=== PATIENT | female | born 1970 | race Caucasian/White ===

== ENCOUNTER → 2018-04-29 | Outpatient (CLI) | payer MEDICAID ==
--- NOTE | 2018-04-29 13:08 | CT ---
EXAMINATION TYPE: CT abdomen pelvis w con DATE OF EXAM: 04/29/2018 HISTORY: Umbilical area pain and bloating, possible hernia CT DLP: 387.9mGycm Automated Exposure Control for Dose Reduction was Utilized. CONTRAST: CT scan of the abdomen and pelvis is performed with oral and with IV Contrast, patient injected with 100 mL of Isovue 300. COMPARISON: None FINDINGS: LUNG BASES: No significant abnormality is appreciated. LIVER/GB: No significant abnormality is appreciated. PANCREAS: No significant abnormality is seen. SPLEEN: No significant abnormality is seen. ADRENALS: No significant abnormality is seen. KIDNEYS: No significant abnormality is seen. BOWEL: The oral contrast extends to the proximal to mid left colon. There is no suspicious small or l arge bowel dilatation. UTERUS/ADNEXA: No gross abnormality seen. LYMPH NODES: No greater than 1cm abdominal or pelvic lymph nodes are appreciated. OSSEOUS STRUCTURES: No significant abnormality is seen. OTHER: There is small fat-containing paraumbilical hernia axial image 36 just inferior to the umbilic us. IMPRESSION: No ascites. Small fat-containing periumbilical hernia. No bowel obstruction.
== END | disposition home or self-care (01) ==
LOC: RADCTMAIN 10:31 → MERGE 12:00
PROVIDERS: ATTEND Family Medicine
DX: K42.9 Umbilical hernia without obstruction or gangrene (principal)
CPT/HCPCS: 74177; Q9967

== ENCOUNTER → 2018-06-21 | Outpatient (CLI) | payer MEDICAID ==
--- NOTE | 2018-06-21 15:27 | US ---
EXAMINATION TYPE: US transvaginal DATE OF EXAM: 06/21/2018 COMPARISON: CT 04/29/2018 CLINICAL HISTORY: R14.0 Abdominal bloating; R10.2 pelvic pain in fem. Family hx ovarian CA, Pressure / pain RLQ TECHNIQUE: Transvaginal (TV). Date of LMP: 06/15/2018 EXAM MEASUREMENTS: Uterus: 8.2 x 3.8 x 3.3 cm Endometrial Stripe: 0.4 cm Right Ovary: 3.8 x 2.3 x 1.9 cm Left Ovary: 3.0 x 1.9 x 1.5 cm 1. Uterus: Anteverted wnl 2. Endometrium: wnl 3. Right Ovary: 2 cysts 1)= 2.1x 1.3 x 1.1 cm 2)= 2.1 x 1.5 x 1.3 cm 4. Left Ovary: cyst = 1.1 x 1.2 x 0.8 cm 5. Bilateral Adnexa: wnl 6. Posterior cul-de-sac: wnl There is heterogeneous uterus without free fluid in pelvic cul-de-sac. Endometrial stripe is within n ormal limits. Both ovaries are seen with small peripheral follicles or simple appearing thin-walled c ysts. No suspicious adnexal lesions are present. IMPRESSION: No suspicious ovarian or adnexal lesions noted.
== END | disposition home or self-care (01) ==
LOC: RADUSWWP 14:28
PROVIDERS: ATTEND Family Medicine
DX: R14.0 Abdominal distension (gaseous) (principal); R10.2 Pelvic and perineal pain
CPT/HCPCS: 76830

== ENCOUNTER → 2018-12-14 | Outpatient (CLI) | payer MEDICAID ==
--- NOTE | 2018-12-15 10:47 | ECHOF ---
Referral Reason:R07.89 Other chest pain, R03.0, R11.0 MEASUREMENTS -------- HEIGHT: 162.6 cm WEIGHT: 57.6 kg BP: RVIDd: 1.8 cm (< 3.3) IVSd: 1.0 cm (0.6 - 1.1) LVIDd: 3.8 cm (3.9 - 5.3) LVPWd: 1.0 cm (0.6 - 1.1) IVSs: 1.5 cm LVIDs: 2.7 cm LVPWs: 1.5 cm LAESV Index (A-L): 18.40 ml/m Ao Diam: 2.5 cm (2.0 - 3.7) AV Cusp: 1.5 cm (1.5 - 2.6) LA Diam: 2.1 cm (2.7 - 3.8) MV EXCURSION: 14.577 mm (> 18.000) MV EF SLOPE: 96 mm/s (70 - 150) EPSS: 0.4 cm MV E Inderjit: 0.86 m/s MV DecT: 256 ms MV A Inderjit: 0.67 m/s MV E/A Ratio: 1.28 FINDINGS -------- Sinus rhythm. This was a technically good study. The left ventricular size is normal. Left ventricular wall thickness is normal. Overall left vent ricular systolic function is normal with, an EF between 55 - 60 %. The right ventricle is normal in size and function. Left atrium is normal size by volume. The right atrium is normal in size and function. The aortic valve is trileaflet, and appears structurally normal. No aortic stenosis or regurgitation. The mitral valve leaflets are mildly thickened. There is trace to mild mitral regurgitation. Trace tricuspid regurgitation present. Right ventricular systolic pressure is normal at < 35 mmHg. There is no evidence of pulmonary hypertension. Trace/mild (physiologic) pulmonic regurgitation. The aortic root size is normal. The inferior vena cava was not well visualized. There is no pericardial effusion. CONCLUSIONS -------- 1. Sinus rhythm. 2. This was a technically good study. 3. The left ventricular size is normal. 4. Left ventricular wall thickness is normal. 5. Overall left ventricular systolic function is normal with, an EF between 55 - 60 %. 6. Left atrium is normal size by volume. 7. The aortic valve is trileaflet, and appears structurally normal. No aortic stenosis or regurgitati on. 8. The mitral valve leaflets are mildly thickened. 9. There is trace to mild mitral regurgitation. 10. Trace tricuspid regurgitation present. 11. Right ventricular systolic pressure is normal at < 35 mmHg. 12. There is no evidence of pulmonary hypertension. 13. Trace/mild (physiologic) pulmonic regurgitation. 14. The aortic root size is normal. 15. There is no pericardial effusion. WEB APPLICATIONS ADMINISTRATOR: Dean Gandara RDCS
== END ==
LOC: RADECHMAIN 13:55
PROVIDERS: ATTEND Family Medicine
DX: I05.9 Rheumatic mitral valve disease, unspecified (principal); I37.1 Nonrheumatic pulmonary valve insufficiency
CPT/HCPCS: 93306

== ENCOUNTER → 2018-12-22 | Outpatient (CLI) | payer MEDICAID ==
--- NOTE | 2018-12-23 12:05 | P.STRESS ---
- Stress Test Note Stress Test Results/Findings: Exam Performed: stress test Exam Date: 12/22/18 Reason for Exam: CHEST PAIN, DIZZY, ELEVATED BP Height: 5 ft 4 in Weight: 57.606 kg Protocol: JUSTIN Stage: III Duration of Exercise: 9:00 Resting Heart Rate: 98 Resting Blood Pressure: 145/97 Maximum Achieved Heart Rate: 172 Maximum Achieved Blood Pressure: 198/87 85% PMHR: 148 100% PMHR: 174 METS: 10.5 Technologist Comment: Stress Test Results/Findings: This is a 48-year-old female being evaluated for symptoms of chest pain and dizziness. Patient has complaints of chest pain and shortness of breath and family history of ischemic heart disease. Stress data: Baseline EKG showed sinus rhythm with normal IN interval and QRS duration with occasional PVCs. Blood pressure at rest is 145/97 at pulse rate 98. Patient walked on the Justin protocol for 9 minutes achieving a maximal rate of 172 with blood pressure 198/87. EKGs taken during and after the exercise did not reveal any significant changes from the baseline. Occasional PVCs were noted. Patient did not experience any chest pain. Final impression: #1. Negative stress test #2 patient did not express any chest pain. #3. Occasional PVCs were noted. #4. Patient's exercise capacity is good.
--- NOTE | 2018-12-26 17:23 | EST ---
Stress Test Results/Findings: Exam Performed: stress test Exam Date: 12/22/18 Reason for Exam: CHEST PAIN, DIZZY, ELEVATED BP Height: 5 ft 4 in Weight: 57.606 kg Protocol: JUSTIN Stage: III Duration of Exercise: 9:00 Resting Heart Rate: 98 Resting Blood Pressure: 145/97 Maximum Achieved Heart Rate: 172 Maximum Achieved Blood Pressure: 198/87 85% PMHR: 148 100% PMHR: 174 METS: 10.5 Technologist Comment: Stress Test Results/Findings: This is a 48-year-old female being evaluated for symptoms of chest pain and dizziness. Patient has complaints of chest pain and shortness of breath and family history of ischemic heart disease. Stress data: Baseline EKG showed sinus rhythm with normal [place] interval and QRS duration with occasional PVCs. Blood pressure at rest is 145/97 at pulse rate 98. Patient walked on the Justin protocol for 9 minutes achieving a maximal rate of 172 with blood pressure 198/87. EKGs taken during and after the exercise did not reveal any significant changes from the baseline. Occasional PVCs were noted. Patient did not experience any chest pain. Final impression: #1. Negative stress test #2 patient did not express any chest pain. #3. Occasional PVCs were noted. #4. Patient's exercise capacity is good. MTDD
== END ==
LOC: RADNMMAIN 08:46
PROVIDERS: ATTEND Family Medicine
DX: R07.89 Other chest pain (principal); R03.0 Elevated blood-pressure reading, without diagnosis of hypertension; R11.0 Nausea
CPT/HCPCS: 93017

== ENCOUNTER → 2019-11-09 | Outpatient (CLI) | payer MEDICAID ==
--- NOTE | 2019-11-10 07:21 | XR ---
EXAMINATION TYPE: XR chest 2V DATE OF EXAM: 11/09/2019 COMPARISON: NONE HISTORY: Cough and congestion TECHNIQUE: Frontal and lateral views of the chest are obtained. FINDINGS: There is no focal air space opacity, pleural effusion, or pneumothorax seen. The cardiac silhouette size is within normal limits. The osseous structures are intact. Mild degenerative cisse e of the spine. IMPRESSION: No acute cardiopulmonary process.
--- NOTE | 2019-11-10 07:22 | XR ---
EXAMINATION TYPE: XR shoulder complete RT DATE OF EXAM: 11/09/2019 CLINICAL HISTORY: Right shoulder pain TECHNIQUE: Three views of the right shoulder are obtained. COMPARISON: None. FINDINGS: There is no acute fracture/dislocation evident in the right shoulder. The acromioclavicul ar and glenohumeral joint spaces appear aligned.. Minimal acromioclavicular arthropathy with very sma ll osteophytes. The visualized ribs are intact and unremarkable. Punctate sclerotic focus of the acr omion likely relates to a bone island. IMPRESSION: There is no acute fracture or dislocation in the right shoulder. Minimal acromioclavicul ar arthropathy.
== END | disposition home or self-care (01) ==
LOC: RAD 16:58
PROVIDERS: ATTEND Family Medicine
DX: M25.511 Pain in right shoulder (principal); M12.811 Other specific arthropathies, not elsewhere classified, right shoulder
CPT/HCPCS: 71046

== ENCOUNTER → 2020-03-25 | Outpatient (CLI) | payer MEDICAID ==
--- NOTE | 2020-03-25 22:31 | XR ---
EXAMINATION TYPE: XR foot complete RT DATE OF EXAM: 03/25/2020 COMPARISON: None HISTORY: Toe pain TECHNIQUE: Three-view right foot FINDINGS: There is an oblique fracture through the diaphysis of the proximal phalanx right fifth digi t. No additional fractures are evident. Soft tissues appear unremarkable. Joint spaces appear preserv ed. IMPRESSION: 1. Oblique fracture proximal phalanx right fifth digit
== END | disposition home or self-care (01) ==
LOC: RADXRMAIN 15:48
PROVIDERS: ATTEND Family Medicine
DX: S62.646A Nondisplaced fracture of proximal phalanx of right little finger, initial encounter for closed fracture (principal)

== ENCOUNTER → 2020-04-17 | Outpatient (CLI) | payer MEDICAID ==
--- NOTE | 2020-04-17 16:17 | XR ---
EXAMINATION TYPE: XR toes RT DATE OF EXAM: 04/17/2020 COMPARISON: 03/25/2020 HISTORY: Fracture TECHNIQUE: Three-view right fifth digit FINDINGS: There is a healing fracture with callus formation within the mid diaphysis proximal phalanx fifth digit. No new fractures are evident. IMPRESSION: 1. Partial healing with callus formation of a oblique mid diaphyseal proximal phalanx fifth digit fr acture
== END | disposition home or self-care (01) ==
LOC: RADXRMAIN 15:05
PROVIDERS: ATTEND Family Medicine
DX: S62.616D Displaced fracture of proximal phalanx of right little finger, subsequent encounter for fracture with routine healing (principal); L84 Corns and callosities

== ENCOUNTER → 2020-12-03 | Outpatient (CLI) | payer MEDICAID ==
--- NOTE | 2020-12-04 07:52 | XR ---
EXAMINATION TYPE: XR cervical spine w flex/ext DATE OF EXAM: 12/03/2020 COMPARISON: None HISTORY: Pain TECHNIQUE: 5 view cervical spine with supplemental flexion and extension views. FINDINGS: There is degenerative disease with loss of disc height C5-6. Retrolisthesis of C5 on C6 is present. Remaining disc heights appear preserved. Vertebral body heights are preserved. Prevertebral space nor mal. Posterior spinal lamellar line appears intact. Vertebral body alignment is preserved in extensio n. With flexion there is anterior subluxation of the C5 in relation to C6 vertebral body returning to its normal position. Mild right and moderate left foraminal stenosis at C5-6 is present. Submental v ertex views of the odontoid appears normal. IMPRESSION: 1. Degenerative disc changes C5-6 with loss of disc height. 2. Retrolisthesis of C5 on C6 in neutral and extension views, returns to normal position with flexion . 3. Foraminal stenosis C5-6, greater on the left.
== END | disposition home or self-care (01) ==
LOC: RADXRMAIN 15:33
PROVIDERS: ATTEND Family Medicine
DX: M47.812 Spondylosis without myelopathy or radiculopathy, cervical region (principal); M43.12 Spondylolisthesis, cervical region; M99.71 Connective tissue and disc stenosis of intervertebral foramina of cervical region
CPT/HCPCS: 72052

== ENCOUNTER → 2021-03-28 | Outpatient (CLI) | payer MEDICAID ==
--- NOTE | 2021-03-30 13:36 | MR ---
EXAMINATION TYPE: MR cervical spine wo con DATE OF EXAM: 03/28/2021 COMPARISON: 12/03/2020 plain film HISTORY: Neck pain, numbness down both arms to fingers. CONTRAST: Performed utilizing 0 mL intravenous Gadavist gadolinium contrast. TECHNIQUE: Multiplanar multiecho imaging on a 3.0 Jessica magnet is performed through the cervical spin e. FINDINGS: The craniovertebral junction is normal. Vertebral body alignment is normal. C7-T1: No focal disc herniation or significant disc bulge is evident. No spinal canal stenosis or n eural foraminal stenosis is present. C6-7: Mild disc bulges anterior thecal sac contact. No cord contact is evident. No spinal canal steno sis is present. Moderate foraminal narrowing is present greater on the left. C5-6: Grade 1 retrolisthesis of C5 posterior on C6 is present. Disc uncovering is present with modera te anterior thecal sac contact. Cord contact is evident with some mild cord flattening. No signal abn ormality within the cord is evident. Bilateral moderate foraminal stenosis is present. Correlate with radicular symptoms. Disc bulging may have greater impression on the exiting left C5 exiting nerve ro ot. C4-5: No focal disc herniation or significant disc bulge is evident. No spinal canal stenosis or bobby ral foraminal stenosis is present. C3-4: No focal disc herniation or significant disc bulge is evident. No spinal canal stenosis or bobby ral foraminal stenosis is present. C2-3: No focal disc herniation or significant disc bulge is evident. No spinal canal stenosis or bobby ral foraminal stenosis is present. IMPRESSIONS: 1. Grade 1 retrolisthesis of C5 posterior on C6. Disc space narrowing is present with disc uncovering . 2. Disc uncovering at C5-6 has moderate anterior thecal sac impression, cord contact and mild cord fl attening. AP spinal canal stenosis is not present. 3. Moderate bilateral foraminal stenosis correlate for radicular symptoms, more so on the left.
== END | disposition home or self-care (01) ==
LOC: RADMRIMAIN 18:02
PROVIDERS: ATTEND Family Medicine
DX: M50.322 Other cervical disc degeneration at C5-C6 level (principal); M43.12 Spondylolisthesis, cervical region; M99.71 Connective tissue and disc stenosis of intervertebral foramina of cervical region
CPT/HCPCS: 72141

== ENCOUNTER → 2021-04-28 | Outpatient (CLI) | payer MEDICAID ==
--- NOTE | 2021-04-30 07:44 | MM ---
Reason for exam: screening (asymptomatic). Last mammogram was performed 4 years and 4 months ago. Physical Findings: A clinical breast exam by your physician is recommended on an annual basis and results should be correlated with mammographic findings. MG Screening Mammo w CAD Bilateral CC and MLO view(s) were taken. Prior study comparison: December 30, 2016, mammogram, performed at [facility]. December 18, 2015, mammogram, performed at [facility]. The breast tissue is heterogeneously dense. This may lower the sensitivity of mammography. No significant changes when compared with prior studies. ASSESSMENT: Negative, BI-RAD 1 RECOMMENDATION: Routine screening mammogram of both breasts in 1 year.
== END | disposition home or self-care (01) ==
LOC: RADMAMWWP 15:34
PROVIDERS: ATTEND Family Medicine
DX: Z12.31 Encounter for screening mammogram for malignant neoplasm of breast (principal)
CPT/HCPCS: 77067

== ENCOUNTER → 2021-10-14 | Outpatient (CLI) | payer BC ==
[2021-10-15 01:08] LABS: Basophils # (A) 0.05 X 10*3/uL (0.00-0.10); Basophils % (A) 0.7 %; Eosinophils # (A) 0.12 X 10*3/uL (0.04-0.35); Eosinophils % (A) 1.6 %; HCT 35.3 % (37.2-46.3); HGB 11.3 g/dL (12.0-15.0); Lymphocytes # (A) 2.15 X 10*3/uL (0.90-5.00); Lymphocytes % (A) 29.4 %; MCH 31.8 pg (27.0-32.0); MCV 99.4 fL (80.0-97.0); Mean Platelet Volume 10.7 fL (9.5-12.2); Monocytes # (A) 0.68 X 10*3/uL (0.20-1.00); Monocytes % (A) 9.3 %; Neutrophils # (A) 4.31 X 10*3/uL (1.80-7.70); Neutrophils % (A) 58.9 %; Platelet Count 324 X 10*3/uL (140-440); RBC 3.55 X 10*6/uL (4.10-5.20); RDW 14.8 % (11.5-14.5); WBC 7.32 X 10*3/uL (4.50-10.00)
== END | disposition home or self-care (01) ==
LOC: LABPAT 15:42
PROVIDERS: ATTEND Obstetrics & Gynecology
DX: Z01.812 Encounter for preprocedural laboratory examination (principal); I10 Essential (primary) hypertension; D06.9 Carcinoma in situ of cervix, unspecified
CPT/HCPCS: 85025; 93005

== ENCOUNTER 2021-10-21 06:36 | Day surgery (SDC) | payer BC ==
[2021-10-17 17:21] VITALS: BMI 27.4
[~2021-10-21 06:36] MED LIST: DEXAMETHASONE SOD PHOSPHATE 4 MG/ML 1 ML VIAL IV ONE; LIDOCAINE 1% (10MG/ML) FOR IV START INTRADERMA PRN
[2021-10-21] MEDS ORDERED: HYDROmorphone 0.5 MG/0.5 ML SYRINGE IVP PRN (07:00)
[2021-10-21] MEDS ORDERED: ONDANSETRON 4 MG/2 ML VIAL IVP PRN (07:00)
[2021-10-21 07:21] VITALS: TEMP 98.1
[2021-10-21] MEDS: LACTATED RINGERS 1,000 ML IV SCH ×2 (07:29→07:49)
[2021-10-21] MEDS ORDERED: MIDAZOLAM 2 MG/2 ML VIAL IVP ONE (07:30)
[2021-10-21] MEDS ORDERED: LIDOCAINE 1% INJ 10MG/ML (20 ML MDV) ONE (07:46)
[2021-10-21] MEDS ORDERED: fentaNYL (PF) 50 MCG/ML 2 ML AMP ONE (07:46)
[2021-10-21] MEDS ORDERED: KETOROLAC 15 MG/ML 1 ML VIAL ONE (07:46)
[2021-10-21] MEDS ORDERED: PROPOFOL 10 MG/ML 20 ML VIAL IV ONE (07:46)
[2021-10-21] MEDS ORDERED: MIDAZOLAM 2 MG/2 ML VIAL ONE (07:46)
[2021-10-21] MEDS ORDERED: VASOPRESSIN 20 UNIT in SODIUM CHLORIDE 0.9% 50 ML SQ ONE (08:01)
[2021-10-21] MEDS ORDERED: FERRIC SUBSULFATE (MONSELS) JAR TOPICAL ONE (08:06)
[2021-10-21 08:20] VITALS: RESP 16
--- NOTE | 2021-10-21 08:25 | P.OP ---
Date of Procedure: 10/21/21 Preoperative Diagnosis: High-grade squamous intraepithelial lesion, positive ECC Postoperative Diagnosis: Same Procedure(s) Performed: Cold Knife Conization, ECC Anesthesia: GETA Surgeon: Nguyen Joy Estimated Blood Loss (ml): 10 IV fluids (ml): 200 Urine output (ml): 50 Pathology: other (Cervical conization specimen sutured tagged at 12:00, endocervical curettage) Condition: stable Disposition: PACU Description of Procedure: Patient is brought to the operating suite where a general anesthetic is administered without difficulty. Antibiotics are given. Urine hCG is negative. She's placed in the dorsal lithotomy position. The cervix, vagina, perineal bodies are all prepped and draped in usual sterile fashion. The appropriate timeout is performed to assure proper patient and procedural identification. The bladder is drained for approximately 50 mL of clear yellow urine. Weighted speculum was placed into the vagina. Anterior lip of the cervix is grasped with a double-tooth tenaculum. Stay sutures of 0 Vicryl are placed on the cervix to aid in hemostasis, from 2:00 to 4:00, and then from 8:00 to 10:00. These are held laterally. The cervix is then injected with a dilute Pitressin solution, 10 mL total utilized. A scalpel is then used to incise the tissue in a circumferential fashion, with care to remove the entire transitional zone. The specimen is sutured tagged at 12:00 with 0 Vicryl suture and sent to pathology. An endocervical curettage is then performed on a Telfa pad, sent under separate cover. The base of the cervical stump is now cauterized with electrocautery to aid in hemostasis and 2 obliterate any remaining cells. Monsel solution is placed on the cervix now, for excellent hemostasis. The stay stitches are removed. All sponge needle and enhancement counts are correct. Cervix is clean and dry. Patient is brought back to the recovery room in very good condition with stable vital signs including blood pressure 90/52, 99% O2 saturation, pulse 72. Toradol is given prior to leaving the operative suite. Patient will follow-up with me in the office in 2 weeks. Postoperative instructions are reviewed.
[2021-10-21 10:14] VITALS: BP 119/66; PULSE 71
== END 2021-10-21 10:15 | disposition home or self-care (01) ==
LOC: OR 06:36
PROVIDERS: ATTEND Obstetrics & Gynecology
DX: R85.613 High grade squamous intraepithelial lesion on cytologic smear of anus (HGSIL) (principal)
CPT/HCPCS: 57520; 81025; J2250; J1100; J0690; J2405; J2001; J3010; J1885; J2704; 88305; 88307

== ENCOUNTER → 2021-12-23 | Outpatient (CLI) | payer BC ==
[2021-12-23 23:38] LABS: Protein, Total 7.9 g/dL (6.2-8.2)
== END | disposition home or self-care (01) ==
LOC: LABWHC1 15:54
PROVIDERS: ATTEND Family Medicine
DX: R77.1 Abnormality of globulin (principal)
CPT/HCPCS: 36415; 84165; 84166

== ENCOUNTER → 2022-03-02 | Outpatient (CLI) | payer BC ==
[2022-03-02 18:02] LABS: INR 0.9 (0.90-1.11); Prothrombin Time 9.9 sec (9.9-11.9)
[2022-03-02 18:53] LABS: Basophils # (A) 0.04 X 10*3/uL (0.00-0.10); Basophils % (A) 0.8 %; Eosinophils # (A) 0.14 X 10*3/uL (0.04-0.35); Eosinophils % (A) 2.7 %; HGB 11.9 g/dL (12.0-15.0); Immature Grans, Automated 0.2 %; Lymphocytes # (A) 1.33 X 10*3/uL (0.90-5.00); Lymphocytes % (A) 25.5 %; MCH 30.4 pg (27.0-32.0); MCHC 31.3 g/dL (32.0-37.0); MCV 96.9 fL (80.0-97.0); Mean Platelet Volume 10.2 fL (9.5-12.2); Monocytes # (A) 0.56 X 10*3/uL (0.20-1.00); Monocytes % (A) 10.7 %; NRBC Per 100 WBC 0 /100 WBCS (0.0-0.0); Neutrophils # (A) 3.14 X 10*3/uL (1.80-7.70); Neutrophils % (A) 60.1 %; Platelet Count 384 X 10*3/uL (140-440); RBC 3.92 X 10*6/uL (4.10-5.20); RDW 15.3 % (11.5-14.5); WBC 5.22 X 10*3/uL (4.50-10.00)
[2022-03-02 19:05] LABS: Anion Gap 16.2 mmol/L (10.00-18.00); BUN/Creat Ratio 16.01 Ratio (12.00-20.00); Blood Urea Nitrogen 8.7 mg/dL (9.0-27.0); Calcium 9.6 mg/dL (8.7-10.3); Carbon Dioxide 25.7 mmol/L (20.0-27.5); Non-African American GFR(CKD) 110.4 (60.0-200.0); Potassium 3.1 mmol/L (3.5-5.5)
== END | disposition home or self-care (01) ==
LOC: LABPAT 11:09
PROVIDERS: ATTEND Orthopaedic Surgery
DX: Z01.812 Encounter for preprocedural laboratory examination (principal); M48.02 Spinal stenosis, cervical region; M47.812 Spondylosis without myelopathy or radiculopathy, cervical region
CPT/HCPCS: 80048; 85025; 85610; 87070; 93005

== ENCOUNTER 2022-03-09 05:58 | Day surgery (SDC) | payer BC ==
--- NOTE | 2022-03-08 16:23 | P.HPOR ---
History of Present Illness H&P Date: 03/02/22 Chief Complaint: Neck pain, arm pain [facility] History and Physical Date of :[birth year] [id number]: 51 year Height: 5'4" Weight: 172 lbs BMI: 29.52 kg/m2 Occupation: [employer] VAS: 8 CHIEF COMPLAINT: Cervical pain DOI: None DOS: None Duration of current treatment regiment: 3 months HISTORY: Xrays No new xrays taken in office Trauma or injury No Work-Related No Pain description burning, sharp. Location posterior Activity Modification yes Hand Dominance right TREATMENTS COMPLETED: 6 weeks of PT completed? Month and Year of last PT date? 12/2021 Yes How many sessions? 12 Did it help? No Physician directed home exercise completed? Duration of HEP course: yes Patient has trialed the physician directed home exercise program for 3 months (without) relief of their symptoms. Medications yes List: Motrin, Aleve, OTC meds, Flexeril Alternative interventions Chiropractic: yes , without relief. Massage therapy: No R.I.C.E: yes , ice without relief Brace: No Injections No RFA: No SUBJECTIVE: Today Ms. Talley presents to the office for a pre-operative review of the planned C5-C6 ACDF. Since the time of the last appointment the patient reports that she has seen no changes to her symptoms. Overall she notes continued debility due to her ongoing pain and is ready to proceed with the planned procedure. Patient denies seeing any improvements to her symptoms with all abovementioned treatment modalities otherwise and has no other questions or concerns about the planned procedure. She denies any f/c/sob/cp, no bladder or bowel retention/incontinence, no perineal numbness/tingling, and ambulates independently. HPI: Ms. Talley was last seen on 12/24/2021 via phone call regarding her procedure scheduled for 03/09/2022. Patient had postoperative questions regarding activity and limitations. She states she has a constitution party planned for the beginning of April and wanted to find out the restrictions post operatively. All questions have been answered at this time patient states she has no further needs. Call duration 15 minutes. Ms. Talley last presented to the office on 11/21/2021 for neck pain and arm pain that she has had for some time now. She states it has been going on for several months and she has not been able to treat it. She has done PT for the neck as well as chiropractics, taking Motrin and OTC meds for partial relief of her sx. She c/o pain radiating down her arms which used to be just on the left but now is both arms and into her hands. She c/o pain in her forearms as well as difficulty with holding onto objects. She does stretching at home that some times alleviates her sx. but as of late these have not. She underwent MRI by her PCP after PT and is here today for results as well as discussion of findings, her sx and treatment options. She denies any bowel or bladder issues. She denies any gait disturbances but does state dropping objects more and difficulty writing her name due to pain and weakness. The patients' past social, medical, family, surgical history, as well as review of systems, have been reviewed. Please refer to the Neurosurgery History and Physical form that has been scanned in to our electronic medical record system. 16 points review of systems completed and as stated in HPI, all other systems reviewed are negative. Social History: Reviewed, see appropriate section of the chart for details. P3 Social History: Smoking: none P3 Alcohol: currently drinks alcohol P3 2 beers a day P3 Family History: Reviewed, see appropriate section of the chart for details. P2 Past Medical History: Reviewed, see appropriate section of the chart for details. P1 Current Medications: Rx: cyclobenzaprine 10 mg tablet Ref: 0 Rx: hydroCHLOROthiazide 25 mg tablet Ref: 0 Rx: metoprolol tartrate 50 mg tablet Ref: 0 Rx: PriLOSEC Ref: 0 PHYSICAL EXAMINATION: General: Awake, alert, appropriate for age, in no acute distress. HEENT: No unusual neck masses around region of lateral neck triangle, thyroid, supraclavicular groove Heart: Regular rate and rhythm, normal S1, S2 and no murmur/gallop. Lungs: Clear to auscultation bilaterally with no use of accessory muscles. Extremities: Skin warm and dry without acute lesions, coloration, temperature, skin intact, no tenderness or erythema Integument: Hairy patches: Absent Dorsal skin dimples: Absent Cafe au lait spots: Absent Surgical incisions: No Palpation: Please see Pain drawing on Intake sheet for further detail. Midline spinal tenderness: No E6 Paralumbar tenderness: No E6 Parathoracic tenderness: No E6 Buttocks tenderness: No E6 Special findings: No Mild Paracerical tenderness to palpation POSTURAL and MUSCULO-SKELETAL EVALUATION: Coronal Balance: NEUTRAL Recumbent testing: Patient is able to lay flat on back Sagittal Balance: NEUTRAL Shoulder Profile: LEVEL Pelvic Girdle: LEVEL Neck ROM: RESTRICTED Lumbar ROM: UNRESTRICTED Shoulder ROM: Symmetrical Hip ROM: Symmetrical Knee ROM: Symmetrical Hands: Normal appearance, symmetrical Feet: Normal appearance, Symmetrical VASCULAR STATUS : LEFT RIGHT Wrist Pulses INTACT INTACT Pedal Pulses (Dors. pedis & post.tibialis) INTACT INTACT Color NORMAL NORMAL Edema Absent Absent NEUROLOGIC EXAMINATION: Mental Status:Awake and alert, fully oriented, with normal attention, concentration and memory, and fluent, appropriate speech. Cranial Nerves: I: Olfactory not tested. II: Visual acuity normal, no visual field deficit noted with confrontation. III,IV: Normal pupillary reflexes & intact extraocular movements without nystagmus. V,: Intact symmetrical facial sensation. VII: Intact symmetrical facial motor movement VIII: Hearing intact. IX,X: Intact gag, swallow, & normal voice. XI: Sternocleidomastoid, trapezius function intact. XII: Tongue midline with normal movements. L'hermitte's Sign: Negative / absent Spurling'Sign: Absent bilaterally. Cubital percussion test: Absent bilaterally. Mishra-Tinel sign - Carpal region: Absent bilaterally. Straight Leg Raising: Absent bilaterally. Crossed straight leg raise: negative O8 MOTOR EXAM (0-5/5, N/T) STRENGTH RIGHT LEFT Shoulder Abd (not part of the JEWEL score) 5 5 Elbow Flexors 5 4+ Elbow Extensor 4+ 4+ Wrist Dorsiflexors 5 5 Finger Abductor 5 5 Photograph Enlarger 4 4 Hip Flexor (Not part of JEWEL Motor score) 5 5 Knee Flexor 5 5 Knee Extensor 5 5 Ankle dorsiflexor 5 5 Ankle plantarflexion 5 5 Extensor hallucis 5 5 REFLEXES(0-4/2, NT) RIGHT LEFT Upper Extremities 3 3 Lower Extremities 2 2 Pathological Reflexes RIGHT LEFT Mishra's Present Present Clonus Absent Absent Babinski Absent Absent # Indicates mechanical impairment Muscle appearance: Symmetrical, without signs of atrophy or dystrophy. Sensory system (0-4, N/T) Test type RU LEONARDO RL LL Joint-Position 2 2 2 2 Vibration 2 2 2 2 Pain & LT sense 2 2 2 2 Dermatomal Deficit: C5-6 C5 None None Gait and Functional Evaluation: Ambulatory aids: Independent Romberg's test: Intact bilaterally Toe heel walk / heel-toe walk intact while maintaining satisfactory balance? yes Squatting/straightening w/o assistance to a min of 60 degree knee flexion? yes Single leg stance: Trendelenburg sign negative bilaterally Hand and finger dexterity intact bilaterally? No Disdiadochokinesis examination negative bilaterally? yes RADIOGRAPHIC STUDIES: Multi view x-ray cervical spine 11/21/2021: These were reviewed and discussed with the patient the office today. This demonstrates C5-C6 severe spondylosis with Modic endplate changes there is segmental kyphosis at this level and C5-C6 as well as C4-C5. There is facet arthropathy which is noted as well. No acute fracture or dislocation noted. Occipitocervical C1 2 joints appear stable to flexion and extension. Segmental kyphosis is exaggerated when patient is flexed.there is also grade 1 spondylolisthesis of C4 on C5 and flexion which reduces on extension. No other fracture dislocation or lesion noted. MRI cervical spine 03/28/2021: This is reviewed and again demonstrates severe spondylosis C5-C6 with dear complete disc desiccation disc herniation posteriorly with central stenosis foraminal stenosis Modic endplate changes facet hypertrophy. No acute fracture or dislocation is noted. There is again a subtle grade 1 spondylolisthesis C4 and C5 which may be physiologic in nature. No lesions noted. Segmental kyphosis due to the disc desiccation. IMPRESSION: It was my pleasure to have seen and examined Ani. I reviewed the patient's clinical syndrome, physical findings, and imaging studies during the appointment today. It is my impression that the patient has a diagnosis of. 1. C5-C6 spondylosis, severe 2.C5-C6 stenosis 3. UE weakness 4. UE radiculopathy I outlined the natural course history without intervention and various interventional options. PLAN: Based on my findings I suggest the following course of action: - The nature of the disorder and treatment options were discussed with the patient. I discussed treatment options with the patient, including operative and non- operative options, and they have elected to proceed with the following surgical procedure: C5-C6 ACDF The indications, risks, benefits, and alternatives to surgery were discussed with the patient at length. Specifically (but not limited to) the risks of infection, stiffness, recurrence of symptoms, need for revision surgery, local numbness, neurovascular injury, and blood clots were discussed. The patient's questions were answered. The decision to proceed was made. Consent will be obtained for the procedure Spine Surgery Risk Review Ms. Talley is presenting for evaluation of cervical pain. It was my pleasure to have seen and examined Ms. Talley. In our visit today we have had a chance to go over subjective complaints, physical examination findings and treatments including the natural course hi story without intervention and various interventional options. The patients imaging demonstrates: Multi view x-ray cervical spine 11/21/2021: These were reviewed and discussed with the patient the office today. This demonstrates C5-C6 severe spondylosis with Modic endplate changes there is segmental kyphosis at this level and C5-C6 as well as C4-C5. There is facet arthropathy which is noted as well. No acute fracture or dislocation noted. Occipitocervical C1 2 joints appear stable to flexion and extension. Segmental kyphosis is exaggerated when patient is flexed.there is also grade 1 spondylolisthesis of C4 on C5 and flexion which reduces on extension. No other fracture dislocation or lesion noted. MRI cervical spine 03/28/2021: This is reviewed and again demonstrates severe spondylosis C5-C6 with dear complete disc desiccation disc herniation posteriorly with central stenosis foraminal stenosis Modic endplate changes facet hypertrophy. No acute fracture or dislocation is noted. There is again a subtle grade 1 spondylolisthesis C4 and C5 which may be physiologic in nature. No lesions noted. Segmental kyphosis due to the disc desiccation. . On physical exam, Ms. Talley demonstrates severely restricted cervical ROM with bilateral upper extremity radiculopathy and weakness. Patient does also demonstrate bilateral upper extremity C5-C6 dermatomal deficits. I have explained to the patient that as their condition progresses it will cause further neurological deficits and eventual paralysis. Based on the patients imaging, physical exam, and the rapid progression and disabling nature of their symptoms, at this time I recommend surgery in the form or a: C5-C6 ACDF. I discussed the risk and benefits of this procedure at length with Ms. Talley. The patient agreed to considered pursuing the procedure abovementioned. Prior to surgery, she should follow up with her PCP (Cardio, ID, IM etc) for clearance. Questions were invited and answered, and the patient wishes to proceed as outlined below. Currently, I am recommendin.C5-C6 Anterior cervical disectomy and fusion 2.Follow up with PCP for surgical clearance 3.Review of surgical risks and benefits as well as an educational packet on the proposed surgical procedure. Risks: All surgical procedures come with inherent risks, including those related to positioning, anesthesia, intraoperative findings, and postoperative complications. It is important to understand that surgery does not come with any guarantee of a successful outcome as complications and adverse events are always possible. The patient was given a handout in office today discussing the surgical procedure and risks associated with the intervention, both of which were discussed with the patient. These risks include but are not limited to the following: * Experiencing same, different or even worse symptoms in back, neck, arms, or legs compared to before surgery. Requiring further surgery or other forms of treatment presently or at some time in the future at same or other levels of the intended spine surgery. On an extreme but fortunately relatively rare basis severe complication such as blindness, stroke, heart attack, temporary and/or permanent nerve injury, paralysis, coma, or may occur, sometimes without known explanation. Surgical complications may include but are not limited to risk of infect ion, fluid accumulation in the surgical dissection site, including a seroma or hematoma, that requires additional surgery, wound drainage, bleeding, new numbness or weakness, vision changes/loss, spinal fluid leakage, non-healing and/or infected incision, headaches, difficulty or inability to swallow, hoarseness, hemopneumothorax, pneumothorax, impotence, retrograde ejaculation, vaginal dryness; injury to nerves, spinal cord, blood vessels, lymphatics or other vital organs (i.e., bowel injury, injury to the great vessels); heterotopic bone formation; complications related to the hardware such as screws, rods, cages including misplaced hardware, device failure, instrumentation at the wrong spine level, hardware fracture/breakage, or hardware loosening; vertebral failure of the spinal column above or below the newly placed hardware; retained surgical instrumentations or devices and the need for further surgery. * Medical risks of the planned spine surgery include but are not limited to generalized Infections to the whole body or local areas outside of the surgical site (sepsis), heart attack, bleeding, anaphylaxis, meningitis, seizure, epilepsy, hearing loss, burn ahumada, laceration of the head or other areas of the body, bruising, hypersensitivity of the skin, bladder over distension; allergic reaction; shoulder injury related to positioning; fat, blood and air clots to other areas of the body like heart, lungs, brain; failure of internal organs such as lungs, kidneys, liver and excessive bleeding. If blood transfusions are necessary, note that transfusions may cause intolerance reactions such as anaphylaxis or other complex reactions. Despite best efforts, the results of spine surgery might not heal in terms of bone, soft tissues such as skin, fascia, ligaments, and joints. Additionally, in order to achieve best possible results, spine surgery may be carried out beyond the initially planned levels and involve decompression, fusion including insertion of hardware at levels other than the original intended area of surgical interest change some portions of the procedure in order to ensure the best possible outcomes. With spine surgery and spinal fusion, there are different off label uses of instrumentation (devices, implants and hardware) as well as biological substances (bone morphogenic proteins, demineralized bone matrix) as well as using extra bone from allograft sources (i.e. cadaver bone) or autograft (iliac crest bone, ribs, or the spine itself). The patient has been given information about these practices and their inherent risks and benefits. [facility] is an educational center that serves as a training facility for neurosurgical and orthopedic DEPARTMENT STORE MANAGER and Nursing students. Physician assistants are medically trained surgical providers who function in the outpatient, inpatient, and operating room setting under the direct supervision of the attending surgeon. [facility] has multiple operating rooms with single and overlapping rooms running daily. They currently function under the required guidelines as produced by the [facility] Finance Committee with regards to the overlapping rooms and will continue to comply with changes to this policy as they occur. The requirements include and are complied with as follows: (1) the critical portions of the overlapping rooms will not occur at the same time, (2) the attending physician will be physically present during the critical portions of the procedure and immediately available during the entire case, and (3) a back-up attending is designated should the primary attending not be immediately available. The patient has had a chance to review all the listed information, has been given print outs detailing this information, and has had all his/her questions answered to their satisfaction. It was my pleasure to have seen and examined Ms. Talley. In our visit today we have had a chance to go over my understanding of our patient's current condition, the natural course history without intervention and various interventional options. Questions were invited and answered, and the patient wishes to proceed as outlined above. I have seen and examined the patient for 25 minutes and we have spent more than 50% of the time in repeat and detailed counseling about the patient's condition, its natural course history with out and as much as can be predicted with surgery and re-review of various surgical treatment options. In conclusion, Ms. Talley requested we proceed with the above suggested surgery and are willing to accept risks and limitations of the suggested surgery as nature of the disease process and our best attempts at treatment for the condition. Thank you again for allowing us to be part of your patient's care. Please don't hesitate to contact me if you have any further questions. Signed and authenticated by: Renato Campa [facility]imally [facility] Sp[facility] [address] [facility], [address] [address] Past Medical History Past Medical History: Cancer, GERD/Reflux, Hypertension, Musculoskeletal Disorder Additional Past Medical History / Comment(s): c/o lower neck pain, numbness left fingertips & pain left arm when lifting above head, varicose veins. hx. cervical cancer recently-had surg. History of Any Multi-Drug Resistant Organisms: None Reported Past Surgical History: Hernia Repair, Hysterectomy Additional Past Surgical History / Comment(s): wisdom teeth, cervical cone b iopsy, recent hyst. Past Anesthesia/Blood Transfusion Reactions: Motion Sickness Smoking Status: Never smoker - Past Family History Mother Brother(s) Family Medical History: Cancer Additional Family Medical History / Comment(s): mother - pancreatic cancer; brother - throat cancer Father Family Medical History: Cancer Additional Family Medical History / Comment(s): skin cancer Medications and Allergies Home Medications Medication Instructions Recorded Confirmed Type Omeprazole Magnesium [PriLOSEC OTC] 20 mg PO DAILY 10/17/21 03/04/22 History amLODIPine BESYLATE 10 mg PO DAILY 10/17/21 03/04/22 History hydroCHLOROthiazide [Hydrodiuril] 25 mg PO DAILY 10/17/21 03/04/22 History Allergies Allergy/AdvReac Type Severity Reaction Status Date / Time No Known Allergies Allergy Verified 03/04/22 15:04 Physical Examination Osteopathic Statement: *. No significant issues noted on an osteopathic structural exam other than those noted in the History and Physical/Consult.
[~2022-03-09 05:58] MED LIST changes: +ACETAMINOPHEN TAB 500 MG TAB PO PRN; -DEXAMETHASONE SOD PHOSPHATE 4 MG/ML 1 ML VIAL IV ONE; +GABAPENTIN 300 MG CAP PO PRN; +LACTATED RINGERS 1,000 ML IV SCH; +ONDANSETRON 4 MG/2 ML VIAL IVP PRN; +TRANEXAMIC ACID IN NACL,ISO-OS 1,000 MG in SALINE 1 100ML.BAG IVPB PRN
--- NOTE | 2022-03-09 06:55 | P.PN ---
Progress Note - Text Progress Note Date: 03/09/22 History and Physical UPDATE I have seen and examined the patient and reviewed the history and physical. There appear to be no significant changes in the patient's current medical status as outlined in the current History and Physical. We discussed surgical procedure again and I answered all her questions. She was willing to proceed.
[2022-03-09] MEDS ORDERED: SCOPOLAMINE 1 MG/72 HR PATCH TRANSDERM ONE (07:15)
[2022-03-09] MEDS ORDERED: MIDAZOLAM 2 MG/2 ML VIAL IVP ONE (07:16)
[2022-03-09] MEDS ORDERED: KETAMINE 10 MG/ML 20 ML VIAL ONE (07:45)
[2022-03-09] MEDS ORDERED: TRANEXAMIC ACID IN NACL,ISO-OS 1,000 MG/100 ML BAG ONE (07:45)
[2022-03-09] MEDS ORDERED: fentaNYL (PF) 50 MCG/ML 2 ML AMP ONE (07:45)
[2022-03-09] MEDS ORDERED: PROPOFOL 10 MG/ML 20 ML VIAL IV ONE (07:45)
[2022-03-09] MEDS ORDERED: HYDROmorphone (PF) 1 MG/ML ONE (07:45)
[2022-03-09] MEDS ORDERED: MIDAZOLAM 2 MG/2 ML VIAL ONE (07:45)
[2022-03-09] MEDS ORDERED: DEXAMETHASONE SOD PHOSPHATE 10 MG/ML 1 ML VIAL ONE (07:45)
[2022-03-09] MEDS ORDERED: LIDOCAINE 2% INJ 20 MG/ML (2 ML VIAL) ONE (07:45)
[2022-03-09] MEDS ORDERED: PHENYLEPHRINE-0.9% NACL SYG 1,000 MCG/10 ML SYRINGE ONE (07:45)
[2022-03-09] MEDS ORDERED: SUCCINYLCHOLINE CHLORIDE 100 MG/5 ML SYR IV ONE (07:45)
[2022-03-09 08:17] LABS: African American GFR (CKD) >90 (>60 ml/min/1.73 sqM); Anion Gap 6 mmol/L; Blood Urea Nitrogen 6 mg/dL (7-17); Calcium 8.9 mg/dL (8.4-10.2); Carbon Dioxide 29 mmol/L (22-30); Chloride 104 mmol/L (98-107); Glucose 111 mg/dL (74-99); Non-African American GFR(CKD) >90 (>60 ml/min/1.73 sqM); Potassium 4.2 mmol/L (3.5-5.1); Sodium 139 mmol/L (137-145)
[2022-03-09] MEDS ORDERED: BUPIVACAINE (PF) 0.5% 30 ML VIAL SQ ONE (08:24)
[2022-03-09] MEDS ORDERED: LIDOCAINE 2%-EPI 1:100,000 20 ML VIAL SQ ONE (08:24)
[2022-03-09] MEDS ORDERED: THROMBIN (BOVINE) 5,000 UNIT VIAL MISCELLANE ONE (09:00)
[2022-03-09] MEDS ORDERED: GELATIN SPONGE,ABSORB (LARGE) 1 EACH SPONGE MISCELLANE ONE (09:00)
[2022-03-09] MEDS ORDERED: LACTATED RINGERS 1,000 ML IV ONE (09:14)
[2022-03-09] MEDS ORDERED: HYDROcodone/APAP 5-325MG 1 EACH TAB PO PRN (09:56)
[2022-03-09] MEDS ORDERED: CYCLOBENZAPRINE 5 MG TAB PO PRN (09:56)
[2022-03-09] MEDS ORDERED: HYDROcodone/APAP 10-325MG 1 EACH TAB PO PRN (09:56)
[2022-03-09] MEDS ORDERED: HYDROmorphone 0.5 MG/0.5 ML SYRINGE IVP PRN (09:56)
[2022-03-09] MEDS ORDERED: SENNOSIDES-DOCUSATE SODIUM 1 EACH TAB PO PRN (09:56)
[2022-03-09] MEDS: HYDROmorphone 0.5 MG/0.5 ML SYRINGE IVP PRN ×3 (10:22→11:14)
[2022-03-09 10:46] VITALS: TEMP 97
[2022-03-09] MEDS ORDERED: ONDANSETRON 4 MG/2 ML VIAL IVP ONE (10:59)
--- NOTE | 2022-03-09 11:02 | P.PN ---
Progress Note - Text Progress Note Date: 03/09/22 Postop: . Patient seen and examined they are doing well. Their pain is under control at this time. They are moving all 4 extremities without any issues. Vital signs are stable.. They are currently recovering and will be transferred to the floor once deemed stable by the PACU team and anesthesiologist. No Other issues at this time they deny fever chills shortness of breath or chest pain. C collar in place, well fitting Medical management pending Continue with intravenous fluids, pain medication, muscle relaxers, home medication Soft diet to start to advance as tolerated We will reevaluate for DC vs admission
--- NOTE | 2022-03-09 11:04 | XR ---
EXAMINATION TYPE: XR cervical spine limited DATE OF EXAM: 03/09/2022 COMPARISON: None HISTORY: Intraoperative cervical spine, spondylosis TECHNIQUE: 8 fluoroscopic spot images were obtained. FINDINGS: Fluoroscopy time 22 seconds IMPRESSION: 1. Fluoroscopy for intraoperative evaluation.
--- NOTE | 2022-03-09 11:05 | FL ---
Fluoroscopy INDICATION: Pain FINDINGS: Fluoroscopy time: 22 seconds. Images obtained: 0. IMPRESSIONS: 1. Documentation of fluoroscopy.
[2022-03-09 11:54] VITALS: RESP 16
[2022-03-09] MEDS ORDERED: ACETAMINOPHEN TAB 325 MG TAB PO SCH (12:00)
[2022-03-09 12:50] VITALS: BP 122/78; PULSE 60
[2022-03-09] MEDS ORDERED: GABAPENTIN 300 MG CAP PO SCH (21:00)
--- NOTE | 2022-03-11 13:03 | P.OP ---
Date of Procedure: 03/09/22 Preoperative Diagnosis: 1. C5-6 spondylosis, severe with stenosis central and foraminal 2. LUE radiculopathy 3. LUE weakness Postoperative Diagnosis: 1. C5-6 spondylosis, severe with stenosis central and foraminal 2. LUE radiculopathy 3. LUE weakness Procedure(s) Performed: 1. Anterior Right sided Martinez-Mei approach to anterior cervical spine 2. C5-6 anterior cervical discectomy and fusion (21327) 3. Insertion of biomechanical device C5-6 (07765) 4. Application of non integrated anterior cervical plate 1 level C5-6 (65442) 5. Use of intraoperative microscope for visualization of decompression and neural elements (71356) 6. Use of intraoperative neuromonitoring 7. INterpretation of intraoperative flouroscopic imaging <1 hr (93591) Implants: -[place]more [place] 8 mm 7 deg lordotic interbody -[place] plate 1 level 14 mm screws -Bio 4 - local Autograft Anesthesia: GETA Surgeon: Renato [place] Registrar #1: Fabrice Sharma (Was present and assisted in all aspects of the case from positioning to implantation decompression and closure with dressing placement) Estimated Blood Loss (ml): 20 IV fluids (ml): 500 Urine output (ml): 0 Pathology: none sent Condition: stable Disposition: PACU Indications for Procedure: Ms. Talley is presenting for evaluation of cervical pain. It was my pleasure to have seen and examined Ms. Talley. In our visit today we have had a chance to go over subjective complaints, physical examination findings and treatments including the natural course history without intervention and various interventional options. The patients imaging demonstrates: Multi view x-ray cervical spine 11/21/2021: These were reviewed and discussed with the patient the office today. This demonstrates C5-C6 severe spondylosis with Modic endplate changes there is segmental kyphosis at this level and C5-C6 as well as C4-C5. There is facet arthropathy which is noted as well. No acute fracture or dislocation noted. Occipitocervical C1 2 joints appear stable to flexion and extension. Segmental kyphosis is exaggerated when patient is flexed.there is also grade 1 spondyloli sthesis of C4 on C5 and flexion which reduces on extension. No other fracture dislocation or lesion noted. MRI cervical spine 03/28/2021: This is reviewed and again demonstrates severe spondylosis C5-C6 with dear complete disc desiccation disc herniation posteriorly with central stenosis foraminal stenosis Modic endplate changes facet hypertrophy. No acute fracture or dislocation is noted. There is again a subtle grade 1 spondylolisthesis C4 and C5 which may be physiologic in nature. No lesions noted. Segmental kyphosis due to the disc desiccation. . On physical exam, Ms. Talley demonstrates severely restricted cervical ROM with bilateral upper extremity radiculopathy and weakness. Patient does also demonstrate bilateral upper extremity C5-C6 dermatomal deficits. I have explained to the patient that as their condition progresses it will cause further neurological deficits and eventual paralysis. Based on the patients imaging, physical exam, and the rapid progression and disabling nature of their symptoms, at this time I recommend surgery in the form or a: C5-C6 ACDF. I discussed the risk and benefits of this procedure at length with Ms. Talley. The patient agreed to considered pursuing the procedure abovementioned. Prior to surgery, she should follow up with her PCP (Cardio, ID, IM etc) for clearance. Questions were invited and answered, and the patient wishes to proceed as outlined below. Currently, I am recommendin.C5-C6 Anterior cervical disectomy and fusion Description of Procedure: The patient was brought to the holding area on the day of surgery. In the holding area, the patient was seen and examined by myself. The surgical site was marked with my initials using an indelible pen. The patient was taken to the operating room today and after being positively identified, received general endotracheal anesthesia by our anesthesia colleagues and bilateral sequential compression devices were placed on the lower extremities by the nursing staff. SSEP, EMG and motor-evoked potential baselines were obtained after the neuromonitoring leads were applied by the neurophysiology collection technician. Baseline MEPs and SSEPs were run showing good symmetric response in all extremities. SSEPs were also symmetric and stable. The patient was positioned on an interscapular pad on a Treos table with cervical lordosis roll. Arms were circumferentially padded. All pressure points were well padded as well. Shoulder pull-down with 3-inch tape was carried out. Preoperatively within 1 hour of incision, the patient received IV antibiotic prophylaxis and steroids. C-arm was used for bio-mapping in 2 pl anes. Sterile prepping and draping was completed and a safety timeout was carried out. The timeout was performed in order to confirm patient's identity, procedure, laterality, site, patient allergies, and preoperative administration of antibiotics and DVT prophylaxis. I then performed, as discussed with the patient, a [RICHT] sided anterior exposure along the anterior margin of the sternocleidomastoid muscle. This was about a 4 fingerbreadth-long incision. We identified the platysma and split it longitudinally. The superficial layer of the middle cervical fascia was identified and carefully dissected and then the deep layer of it. The omohyoid was mobilized and could be retracted. The deep cervical fascia was then released over the palpable osteophytes at C5-C6 and reflected left and right with francis elevators off the uncovertebral joints. Nice exposure left and right with release of the anterior soft tissues of the longus colli was achieved. A radiopaque marker was placed to confirm the appropriate surgical level. Under C-arm guidance, we verified levels. At this point, a self-retaining cervical retractor was placed, the endotracheal cuff pressure was lowered to reduce compression on the RLN and the intraoperative microscope was brought in for anterior decompression. I then removed the anterior osteophytes at C5-C6. I also used a smaller ENT rongeur to open the disc spaces, including the uncovertebral joints left and right. Bone from the anterior decompression was saved for use as autograft bone fusion material. Under lateral C-arm guidance, I then placed 12 mm traction pins of the [place] type into C5 and C6. Gentle distraction of the vertebrae was carried out until we had restored lordosis. I then spread out the C5 and C6 disc after releasing the disc further with straight small curets. With the soft tissue retractors having been replaced and without any undue tension, I performed an anterior discectomy completion to the posterior inferior vertebral body wall using a combination of the high-speed bur, Kerrison punches, spinal curettes, and the microscopic instruments. The discectomy was performed to the level of the posterior longitudinal ligament. Bilateral foraminotomies and resection of the PLL was performed with the Kerrison punches to decompress the spinal cord and the exiting nerve roots. I also performed tevin dissection of the C5 endplate and the posterior superior endplate of C6, as well as the medial edge of the superior uncovertebral joints left and right of and C6. I released the posterior longitudinal ligament and had full [place] dural sac as a reference for dorsal decompression of left through right. I then turned my attention toward the application of the intervertebral biomechanical device at C5-C6. The trial cages were inserted to identify the best fit. The appropriate-sized intervertebral cage was then selected, in this case a 7 lordotic interbody implant, packed with autograft and allograft and then inserted into the interspace using gentle impaction. A set of motor evoked potentials was run showing no change from baseline. Excess bone graft was then gently impacted into the anterior exposed gutters at C5-C6 to complete the anterior interbody arthrodesis at this level. Nice purchase was obtained. All traction was removed, including pin traction of [place] and external traction weight. I then performed the application of the non-integrated anterior spinal instrumentation from C5-C6. A non-integrated anterior cervical plate was selected for length and then contoured as needed for lordosis with the Turkmen clark. I templated then checked with AP and lateral imaging for adequate alignment and implant placement. With this having been accomplished, all screw holes were filled with 14 millimeter 4.0 screws, depending upon intraoperative drill finding and probing. A very nice stable fixation was obtained. Biplanar imaging revealed satisfactory alignment and implant placement. There were no electrodiagnostic changes. The wound was then copiously irrigated and final hemostasis was achieved using FloSeal hemostatic agent and the bipolar device. At this point, the anterior cervical retractor was removed and the wound was found to have good hemostasis present. I then performed final thorough irrigation and review of the surgical site and found no internal organ injuries. I then closed the incision in layers with a deep drain. I used 3-0 Vicryl for platysma, 3-0 Vicryl for subcutaneous, and 4-0 Monocryl for skin. The skin was then dressed with Exofin and a sterile bandage. Suction canister was applied to the drain. The drain was sewn in to avoid accidental translocation. Drain dressing was applied. A Soft cervical collar was then applied. A final set of motor evoked potentials were run and no change from baseline was noted. At the conclusion of the operation, all sponge, needle, and instrument counts were deemed to be correct. The patient was awakened from their anesthetic, extubated in the operating room, transferred onto their hospital bed, and transferred to the post-anesthesia care unit in a stable condition, extubated condition. COMPLICATIONS: No known complications. No blood products given. No dural tear, no CSF leak. No changes in intraoperative neuromonitoring. DRAINS: One small round nicole drain COUNTS: Needle, sponge and cottonoid count correct. UOP: See anesthesia record FLUIDS: See anesthesia record SPECIMENS SUBMITTED: None. POSTOPERATIVE PLAN: Mobilization with collar to be worn for 3 months. Head of bed should be above 30 degrees. Swallowing trial with ice chips first and then advance from there.
== END 2022-03-09 13:30 | disposition home or self-care (01) ==
LOC: OR 05:58 → 5NMEDONC 09:43 → OR 13:30
PROVIDERS: ATTEND Orthopaedic Surgery
DX: M47.22 Other spondylosis with radiculopathy, cervical region (principal); M48.02 Spinal stenosis, cervical region; Z79.899 Other long term (current) drug therapy; I10 Essential (primary) hypertension; F40.240 Claustrophobia; Z85.41 Personal history of malignant neoplasm of cervix uteri; K21.9 Gastro-esophageal reflux disease without esophagitis
CPT/HCPCS: 86900; 86901; 80048; 86850; 72040; 22551; 22853; 22845; C1713; C1762 ×2; J2250; J1100; J0690; J2405; J3010; J1170 ×2; J2370; J0330; J2704; J2001; 93005

== ENCOUNTER → 2022-08-07 | Outpatient (CLI) | payer BC ==
--- NOTE | 2022-08-07 14:58 | MM ---
Reason for Exam: Clinical finding. Last mammogram was performed 1 year(s) and 3 month(s) ago. Patient History: Menarche at age 13. First Full-Term at age 22. Hysterectomy at age 51. Risk Values: Bettie 5 year model risk: 0.9%. NCI Lifetime model risk: 8.8%. Prior Study Comparison: 12/18/2015 Screening Mammogram, [facility]. 12/30/2016 Screening Mammogram, [facility]. 04/28/2021 Bilateral Screening Mammogram, [facility]. Tissue Density: The breast tissue is heterogeneously dense. This may lower the sensitivity of mammography. Findings: Analyzed By CAD. Nothing to correlate with palpable abnormality in the right breast. No suspicious masses calcifications or distortions. Overall Assessment: Incomplete: need additional imaging evaluation, BI-RAD 0 Management: Diagnostic Breast Ultrasound of the right breast. A clinical breast exam by your physician is recommended on an annual basis and results should be correlated with mammographic findings. This exam should not preclude additional follow-up of suspicious palpable abnormalities. Results were given to the patient verbally at the time of exam. Electronically signed and approved by: Jey Sinclair DO
--- NOTE | 2022-08-07 15:00 | USB ---
Reason for Exam: Clinical finding. Patient History: Menarche at age 13. First Full-Term at age 22. Hysterectomy at age 51. Risk Values: Bettie 5 year model risk: 0.9%. NCI Lifetime model risk: 8.8%. Prior Study Comparison: 12/18/2015 Screening Mammogram, [facility]. 12/30/2016 Screening Mammogram, [facility]. 04/28/2021 Bilateral Screening Mammogram, [facility]. Findings: The lateral section of the breast of the right breast, the axilla of the right breast and the retroareolar of the right breast were scanned. A US of right breast at 8-12 o'clock retro-areolar and axilla regions were reviewed in the area of concern. No solid or cystic masses are identified. No finding to correlate with palpable abnormality. Overall Assessment: Negative, BI-RAD 1 Management: Screening Mammogram of both breasts in 1 year. Clinical management for patient's lump. A clinical breast exam by your physician is recommended on an annual basis and results should be correlated with mammographic findings. This exam should not preclude additional follow-up of suspicious palpable abnormalities. Results were given to the patient verbally at the time of exam. Electronically signed and approved by: Jey Sinclair DO
== END | disposition home or self-care (01) ==
LOC: RADMAMWWP 14:09
PROVIDERS: ATTEND Obstetrics & Gynecology
DX: N63.10 Unspecified lump in the right breast, unspecified quadrant (principal)
CPT/HCPCS: 77062; 77066

== ENCOUNTER → 2022-09-25 | Outpatient (CLI) | payer BC ==
--- NOTE | 2022-09-26 07:30 | XR ---
EXAMINATION TYPE: XR ankle complete RT DATE OF EXAM: 09/25/2022 4:04 PM INDICATION: Patient age:Female; 52 years old; Reason for study: S99.911A UNSPECIFIED INJURY OF RIGHT ANKLE COMPARISON: None TECHNIQUE: The right ankle is imaged in frontal, lateral and oblique projections. FINDINGS: There is no evidence of acute osseous pathology. The joint spaces are well-preserved without evidenc e of subluxation or dislocation. Kager's fat pad is intact. Mild soft tissue swelling around the ankl e. No radiopaque foreign bodies are identified. IMPRESSION: 1. No evidence of acute fracture. 2. Subcutaneous swelling around the ankle likely secondary to underlying soft tissue injury.
== END | disposition home or self-care (01) ==
LOC: RADXRMAIN 15:47
PROVIDERS: ATTEND Physician Assistant
DX: S99.911A Unspecified injury of right ankle, initial encounter (principal); M79.89 Other specified soft tissue disorders

== ENCOUNTER → 2023-06-14 | Outpatient (CLI) | payer OTHER | END | disposition home or self-care (01) | LOC: LABWHC1 10:13 | PROVIDERS: ATTEND Family Medicine | DX: R73.01 Impaired fasting glucose (principal) | CPT/HCPCS: 36415; 83036 ==

== ENCOUNTER → 2023-07-05 | Outpatient (CLI) | payer OTHER ==
--- NOTE | 2023-07-05 17:01 | US ---
EXAMINATION TYPE: US venous doppler duplex LE LT DATE OF EXAM: 07/05/2023 4:38 PM COMPARISON: NONE CLINICAL INDICATION: Female, 53 years old with history of S89.92XA INJURY LEFT LEG; fell down the sta irs, pain in left leg SIDE PERFORMED: Left TECHNIQUE: The lower extremity deep venous system is examined utilizing real time linear array sonog severino with graded compression, doppler sonography and color-flow sonography. VESSELS IMAGED: Common Femoral Vein Deep Femoral Vein Greater Saphenous Vein * Femoral Vein Popliteal Vein Small Saphenous Vein * Proximal Calf Veins (* superficial vessels) Left Leg: Negative for DVT 3.7cm pop fossa cyst seen *called urgent care and phone rang and rang IMPRESSION: 1. Left lower extremity ultrasound negative for deep venous thrombosis. 2. Left Popliteal cyst
== END | disposition home or self-care (01) ==
LOC: RADUSWWP 16:05
PROVIDERS: ATTEND Family Medicine
DX: S89.92XA Unspecified injury of left lower leg, initial encounter (principal); M71.22 Synovial cyst of popliteal space [Baker], left knee

== ENCOUNTER → 2023-12-03 | Outpatient (CLI) | payer BC ==
--- NOTE | 2023-12-06 08:56 | MM ---
Reason for Exam: Screening (asymptomatic). Last mammogram was performed 1 year(s) and 4 month(s) ago. Patient History: Menarche at age 13. First Full-Term at age 22. Hysterectomy at age 51. Risk Values: Bettie 5 year model risk: 1.0%. NCI Lifetime model risk: 8.7%. Prior Study Comparison: 12/30/2016 Screening Mammogram, [facility]. 04/28/2021 Bilateral Screening Mammogram, [facility]. 08/07/2022 Bilateral MG 3D diag mammo w/cad VIDHYA, [facility]. Tissue Density: The breasts are heterogeneously dense, which may obscure small masses. Findings: Analyzed By CAD. There is no suspicious group of microcalcifications or new suspicious mass in either breast. 9 calcifications noted. Overall Assessment: Benign, BI-RAD 2 Management: Screening Mammogram of both breasts in 1 year. . Patient should continue monthly self-breast exams. A clinical breast exam by your physician is recommended on an annual basis. This exam should not preclude additional follow-up of suspicious palpable abnormalities. Note on Bettie scores and lifetime risk: 1. A Bettie score greater than 3% is considered moderate risk. If this is the case, consider specialist referral to assess eligibility for a risk reducing agent. 2. If overall lifetime risk for the development of breast cancer is 20% or higher, the patient may qualify for future screening with alternating mammogram and breast MRI. Electronically signed and approved by: Seamus Salgado M.D. Radiologis
== END | disposition home or self-care (01) ==
LOC: RADMAMWWP 13:37
PROVIDERS: ATTEND Obstetrics & Gynecology
DX: Z12.31 Encounter for screening mammogram for malignant neoplasm of breast (principal)
CPT/HCPCS: 77063; 77067

== ENCOUNTER 2024-05-16 07:17 | Day surgery (SDC) | payer BC ==
[~2024-05-16 07:17] MED LIST changes: -ACETAMINOPHEN TAB 500 MG TAB PO PRN; -GABAPENTIN 300 MG CAP PO PRN; -ONDANSETRON 4 MG/2 ML VIAL IVP PRN; -TRANEXAMIC ACID IN NACL,ISO-OS 1,000 MG in SALINE 1 100ML.BAG IVPB PRN
[2024-05-16] MEDS: IV FLUID CONTINUATION 1,000 ML IV ONE ×2 (07:44→08:29)
[2024-05-16 08:08] VITALS: TEMP 98
[2024-05-16] MEDS ORDERED: PROPOFOL 10 MG/ML 20 ML VIAL IV ONE (08:30)
--- NOTE | 2024-05-16 08:39 | P.GSHP ---
History of Present Illness H&P Date: 05/16/24 Chief Complaint: GERD, screening 54-year-old female here for upper and lower endoscopy. Complains of chronic reflux. Takes Prilosec daily. Symptoms mostly controlled with that. No dysphagia. Never had a colonoscopy. No bowel complaints. Past Medical History Past Medical History: Cancer, GERD/Reflux, Hypertension Additional Past Medical History / Comment(s): Hx heartburn. Sl varicose veins. hx cervical cancer History of Any Multi-Drug Resistant Organisms: None Reported Past Surgical History: Hysterectomy Additional Past Surgical History / Comment(s): wisdom teeth, neck surgery, sinus surgery Past Anesthesia/Blood Transfusion Reactions: No Reported Reaction, Motion Sickness Smoking Status: Never smoker - Past Family History Mother Brother(s) Family Medical History: Cancer Additional Family Medical History / Comment(s): mother - pancreatic cancer; brother - throat cancer Father Family Medical History: Cancer Additional Family Medical History / Comment(s): Skin cancer. Brother(s) Family Medical History: Cancer Additional Family Medical History / Comment(s): Throat cancer. Mother Family Medical History: Cancer Additional Family Medical History / Comment(s): Pancreatic cancer. Medications and Allergies Home Medications Medication Instructions Recorded Confirmed Type Omeprazole Magnesium [PriLOSEC OTC] 20 mg PO QAM 10/17/21 05/16/24 History amLODIPine BESYLATE 10 mg PO QAM 10/17/21 05/16/24 History hydroCHLOROthiazide [Hydrodiuril] 25 mg PO DAILY 10/17/21 05/16/24 History Multivitamins, Thera [Multivitamin 1 tab PO DAILY 02/12/23 05/16/24 History (formulary)] Ferrous Sulfate [Iron] 325 mg PO DAILY 05/11/24 05/16/24 History Unk Aleve 1 tab PO DIRECTED PRN 05/11/24 05/16/24 History Allergies Allergy/AdvReac Type Severity Reaction Status Date / Time No Known Allergies Allergy Verified 05/16/24 07:51 Surgical - Exam Vital Signs Temp Pulse BP Pulse Ox 98 F 65 154/99 98 05/16/24 07:50 05/16/24 07:50 05/16/24 07:50 05/16/24 07:50 Physical exam: General: Well-developed, well-nourished HEENT: Normocephalic, sclerae nonicteric Abdomen: Nontender, nondistended Extremities: No edema Neuro: Alert and oriented Assessment and Plan (1) Colon cancer screening Narrative/Plan: Will proceed with EGD and colonoscopy. Current Visit: Yes Status: Acute Code(s): Z12.11 - ENCOUNTER FOR SCREENING FOR MALIGNANT NEOPLASM OF COLON SNOMED Code(s): 790129914
--- NOTE | 2024-05-16 08:53 | P.PCN ---
Date of Procedure: 05/16/24 Implants: PREOPERATIVE DIAGNOSIS: GERD, screening POSTOPERATIVE DIAGNOSIS: Gastritis, diverticulosis PROCEDURE: 1. EGD with biopsy 2. Colonoscopy ANESTHESIA: MAC SURGEON: Jared Mcdowell M.D. SPECIMENS: Antrum ENDOSCOPIC PROCEDURE: The patient was on the endoscopy table in the left decubitus position. The Olympus gastroscope was inserted into the oropharynx and passed under direct visualization to the region of the third portion of the duodenum. From that point the scope was slowly withdrawn inspecting all surfaces carefully. There were no neoplastic inflammatory or polypoid lesions throughout the duodenum. The pylorus was widely patent. The stomach was carefully inspected. There was mild gastritis present. A biopsy of the antrum took place to rule out H. pylori. Retroflexion revealed a normal hiatus. The esophagus was then carefully examined. There were no neoplastic inflammatory or polypoid lesions throughout the visualized esophagus. The patient was kept on the endoscopy table in the left decubitus position. The Olympus colonoscope was inserted into the anus and passed under direct visualization to the base of the cecum. The appendiceal orifice was visualized. From that point the scope was slowly withdrawn inspecting all surfaces carefully. There were no neoplastic inflammatory or polypoid lesions throughout the cecum, ascending, transverse, descending, sigmoid and rectum. There was mild scattered diverticulosis noted. Digital rectal examination was normal. The patient was taken to the recovery room in stable condition per anesthesia guidelines. RECOMMENDATIONS: Await biopsy results. Resume diet. Repeat EGD colonoscopy 10 years.
[2024-05-16 09:02] VITALS: RESP 16
[2024-05-16 09:12] VITALS: BP 127/87; PULSE 97
== END 2024-05-16 09:26 | disposition home or self-care (01) ==
LOC: ORWHC2ENDO 07:17
PROVIDERS: ATTEND Surgery
DX: Z12.11 Encounter for screening for malignant neoplasm of colon (principal); K29.50 Unspecified chronic gastritis without bleeding; K57.30 Diverticulosis of large intestine without perforation or abscess without bleeding; K21.9 Gastro-esophageal reflux disease without esophagitis; I10 Essential (primary) hypertension; F17.200 Nicotine dependence, unspecified, uncomplicated; Z85.41 Personal history of malignant neoplasm of cervix uteri; Z90.710 Acquired absence of both cervix and uterus; Z80.0 Family history of malignant neoplasm of digestive organs; Z79.899 Other long term (current) drug therapy
CPT/HCPCS: 43239; 45378; 88305

== ENCOUNTER → 2024-12-20 | Outpatient (CLI) | payer BC ==
[2024-12-20 15:12] LABS: Chol/HDL Ratio 2.74 Ratio
[2024-12-20 15:13] LABS: ALT 29 U/L (8-44); AST 30 U/L (13-35); Albumin 4.5 g/dL (3.8-4.9); Alkaline Phosphatase 114 U/L (41-126); BUN/Creat Ratio 19.17 Ratio (12.00-20.00); Blood Urea Nitrogen 11.5 mg/dL (9.0-27.0); Calcium 9.7 mg/dL (8.7-10.3); Chloride 100 mmol/L (96-109); Glucose 102 mg/dL (70-110); LDL Cholesterol,Calculated 118.2 mg/dL (0.0-131.0); Potassium 4.2 mmol/L (3.5-5.5); Sodium 144 mmol/L (135-145); Total Bilirubin 0.3 mg/dL (0.3-1.2); Total Protein 7.5 g/dL (6.2-8.2)
== END | disposition home or self-care (01) ==
LOC: LABWHC1 10:03
PROVIDERS: ATTEND Family Medicine
DX: I10 Essential (primary) hypertension (principal); E78.5 Hyperlipidemia, unspecified
CPT/HCPCS: 36415; 80053; 80061; 83036

== ENCOUNTER → 2025-03-02 | Outpatient (CLI) | payer BC ==
--- NOTE | 2025-03-02 18:46 | MM ---
Reason for Exam: Screening (asymptomatic). Last mammogram was performed 1 year(s) and 3 month(s) ago. Patient History: Menarche at age 13. First Full-Term at age 22. Hysterectomy at age 51. Risk Values: Bettie 5 year model risk: 1.0%. NCI Lifetime model risk: 8.5%. Prior Study Comparison: 04/28/2021 Bilateral Screening Mammogram, [facility]. 08/07/2022 Bilateral MG 3D diag mammo w/cad VIDHYA, [facility]. 12/03/2023 Bilateral MG 3D screening mammo w/cad, [facility]. Tissue Density: The breasts are heterogeneously dense, which may obscure small masses. Findings: Analyzed By CAD. There is no suspicious group of microcalcifications or new suspicious mass in either breast. Overall Assessment: Negative, BI-RAD 1 Management: Screening Mammogram of both breasts in 1 year. Patient should continue monthly self-breast exams. A clinical breast exam by your physician is recommended on an annual basis. This exam should not preclude additional follow-up of suspicious palpable abnormalities. Note on Bettie scores and lifetime risk: 1. A Bettie score greater than 3% is considered moderate risk. If this is the case, consider specialist referral to assess eligibility for a risk reducing agent. 2. If overall lifetime risk for the development of breast cancer is 20% or higher, the patient may qualify for future screening with alternating mammogram and breast MRI. [facility], , 03/02/2025 6:42 PM. Electronically signed and approved by: Jaiden Lr M.D. Radiologist
== END | disposition home or self-care (01) ==
LOC: RADMAMWWP 14:18
PROVIDERS: ATTEND Family Medicine
DX: Z12.31 Encounter for screening mammogram for malignant neoplasm of breast (principal); R92.333 Mammographic heterogeneous density, bilateral breasts
CPT/HCPCS: 77063; 77067